=== PATIENT | female | born 1970 | race Caucasian/White ===

== ENCOUNTER → 2021-07-02 | Outpatient (CLI) | payer OTHER | LOC: MAMMO 10:45 | PROVIDERS: ATTEND Physician Assistant | DX: Z12.31 Encounter for screening mammogram for malignant neoplasm of breast (principal) | CPT/HCPCS: 77067 ==

== ENCOUNTER → 2021-08-23 | Outpatient (CLI) | payer OTHER ==
--- NOTE | 2021-08-23 13:44 | RAD ---
US BREAST LTD RT History:Reason: CALLBACK / Spl. Instructions: / History: Comparison: July 02, 2021 Technique: Sonographic examination of the right breast was performed and multiple static images wer e obtained. Findings: Well-circumscribed the cyst within the right breast 10:00 position 5 cm from the nipple corresponding with mammographic finding measures 0.5 x 0.3 cm. Ductal ectasia retroareolar. Benign-appearing right axillary lymph node. Impression: 1. Well-circumscribed cyst corresponding with mammographic finding. Recommend continued annual scree grady mammograms. BI-RADS Category 2: Benign. Electronically signed by: Marcos Mosquera DO (08/23/2021 1:42 PM) [id number]
== END ==
LOC: US 12:44
PROVIDERS: ATTEND Physician Assistant
DX: N60.01 Solitary cyst of right breast (principal); N60.41 Mammary duct ectasia of right breast; R92.2 Inconclusive mammogram
CPT/HCPCS: 76642